=== PATIENT | male | born 1935 | race Caucasian/White ===

== ENCOUNTER 2017-12-26 21:43 | Emergency (ER) | payer OTHER ==
[~2017-12-26] VITALS: Ht 165.1 cm; Wt 77.0 kg
[~2017-12-26 21:43] MED LIST: ASPI-1159 PO; AZOPT RIGHTEYE; BECL8.7A6 INH; BRIM10DR2 OP; FLUT16SP15 BOTHNSTRLS; GABA-531 PO; HYDR-2510 PO; LATA2.5D2 RIGHTEYE; LEVO500T2 PO; METF500T6 PO; METO-539 PO; SIMV20TA6 PO
[2017-12-26] MEDS ORDERED: ALBUTEROL (0.083%) 2.5MG/3ML NEB HHN STA (22:20)
[2017-12-26] MEDS ORDERED: PREDNISONE 20MG TABLET PO STA (22:20)
[2017-12-26] MEDS ORDERED: IPRATROPIUM BROMIDE (0.02%) 0.5MG/2.5ML NEB HHN STA (22:20)
[2017-12-26] MEDS ORDERED: LEVOFLOXACIN 750MG PREMIX 150 ML IV ONE (22:45)
[2017-12-26 23:25] LABS: CHLORIDE 104 mEq/L (98-107)
[2017-12-26 23:28] LABS: HEMATOCRIT. 39.7 % (42.0-52.0); HEMOGLOBIN. 13.6 g/dL (14.0-18.0); MEAN CORPUSCULAR HEMOGLOBIN 30.3 pg (28.0-32.0); MEAN CORPUSCULAR VOLUME 88.2 fL (80.0-94.0); MONOCYTES % 8.6 % (2.0-8.0); NEUTROPHILS % 60.4 % (40.0-76.0); PLATELET 308 x1000/uL (130-400); RED BLOOD CELL COUNT 4.49 mill/uL (4.7-6.1); RED CELL DISTRIBUTION WIDTH 14.7 % (11.6-14.6)
[2017-12-27 02:00] VITALS: BP 150/88
== END 2017-12-27 03:38 | disposition home or self-care (01) ==
LOC: ER 21:43
DX: J44.9 Chronic obstructive pulmonary disease, unspecified (principal); J18.9 Pneumonia, unspecified organism; E78.00 Pure hypercholesterolemia, unspecified; I10 Essential (primary) hypertension; E11.9 Type 2 diabetes mellitus without complications; R94.31 Abnormal electrocardiogram [ECG] [EKG]; Z79.82 Long term (current) use of aspirin; Z90.49 Acquired absence of other specified parts of digestive tract
CPT/HCPCS: 36415; 71045; 80053; 83605; 83880; 84484; 85025; 87040; 93005; 94640; 96365; 99285; J1956; J7512; J7611

== ENCOUNTER 2021-01-16 03:00 | Emergency (ER) | payer OTHER ==
[~2021-01-16] VITALS: Ht 162.6 cm; Wt 90.0 kg
[~2021-01-16 03:00] MED LIST changes: +ALBU18HF2 IH; -ASPI-1159 PO; +ASPI-1497 PO; +ATOR40TA70 MT; -BRIM10DR2 OP; +BRIM10DR2 RIGHTEYE; +GABA-529 MT; -GABA-531 PO; -HYDR-2510 PO; +HYDR50TA PO; +LATA2.5D14 EACHEYE; -LATA2.5D2 RIGHTEYE; -LEVO500T2 PO; +LISI20TA31 MT; +METF-414 PO; -METF500T6 PO; -SIMV20TA6 PO
[2021-01-16 04:34] VITALS: BP 145/95
== END 2021-01-16 04:30 | disposition home or self-care (01) ==
LOC: ER 03:00
DX: R11.2 Nausea with vomiting, unspecified (principal); R19.7 Diarrhea, unspecified; I10 Essential (primary) hypertension; E11.9 Type 2 diabetes mellitus without complications; J44.9 Chronic obstructive pulmonary disease, unspecified; Z79.899 Other long term (current) drug therapy; Z79.82 Long term (current) use of aspirin; Z79.84 Long term (current) use of oral hypoglycemic drugs; E78.00 Pure hypercholesterolemia, unspecified
CPT/HCPCS: 99283